=== PATIENT | male | born 1965 | race Caucasian/White ===

== ENCOUNTER 2018-09-27 06:46 | Day surgery (SDC) | payer OTHER ==
[~2018-09-27] VITALS: Ht 180.3 cm; Wt 71.2 kg
[~2018-09-27 06:46] MED LIST: COMBIVENT RESPIM4 GM INH
--- NOTE | 2018-09-27 06:52 | NUR ---
09/27/18 0652 Yin Reed History, Chart, Medications and Allergies reviewed before start of procedure. PATIENT CONFIRMS NPO STATUS AND AGREES WITH SCHEDULED PROCEDURE. O2 VIA N/C INTACT THROUGHOUT SEDATION/PROCEDURE. 3-LEAD EKG REVIEWED WITH PHYSICIAN PRIOR TO START OF PROCEDURE. O2 VIA N/C INTACT THROUGHOUT SEDATION/PROCEDURE. PATIENT DETERMINED TO BE ASA APPROPRIATE FOR PROPOFOL SEDATION PRIOR TO START OF PROCEDURE BY DR. DOOLEY.
--- NOTE | 2018-09-27 07:21 | NUR ---
LUNG SOUNDS CLEAR.
--- NOTE | 2018-09-27 07:21 | NUR ---
PT ADMITTED TO [facility]. AGREES WITH PLANNED PROECDURE. STATES HE TOLERATED BOWEL PREP AND LAST BM CLEAR.
--- NOTE | 2018-09-27 09:02 | NUR ---
Discharge instructions reviewed with patient. Patient verbalizes understanding. Copy given to patient to take home. Patient States Post-Procedure ride home has been arranged. CALLED, RIDE ON WAY IN.
--- NOTE | 2018-09-27 09:26 | NUR ---
Discharged via wheelchair to private car for ride home.
== END 2018-09-27 09:25 | disposition home or self-care (01) ==
LOC: ORSCMMR 06:46 → ORD 08:00 → ORSCMMR 08:00
PROVIDERS: Internal Medicine Gastroenterology
PROC: 0DBM8ZX Excision of Descending Colon, Via Natural or Artificial Opening Endoscopic, Diagnostic (ICD-10-PCS; principal; 2018-09-27 08:00)
PROC: 0DBH8ZX Excision of Cecum, Via Natural or Artificial Opening Endoscopic, Diagnostic (ICD-10-PCS; principal; 2018-09-27 08:00)
DX: Z86.010 Personal history of colon polyps (principal); D12.0 Benign neoplasm of cecum; D12.3 Benign neoplasm of transverse colon; J44.9 Chronic obstructive pulmonary disease, unspecified; F17.210 Nicotine dependence, cigarettes, uncomplicated
CPT/HCPCS: 88305; J2704; J7120

== ENCOUNTER 2022-09-01 06:44 | Day surgery (SDC) | payer OTHER ==
[2022-09-01] VITALS (8 sets, daily range): BP systolic 116–150; BP diastolic 81–97
[~2022-09-01] VITALS: Ht 180.3 cm; Wt 65.9 kg
[~2022-09-01 06:44] MED LIST changes: +ALBU90OI INH; +AMLO5 PO; +ATOR80 PO; +Aspir 8181 MG PO; +BUDESONIDE-FO10.2 G2 INH; +BUPR150T2 PO; +IBUP200 PO; +IBUP600 PO
--- NOTE | 2022-09-01 10:02 | NUR ---
PT BACK TO [facility]ERY VIA BED AFTER PROCEDURE. AWAKE AND ALERT, DENIES ANY PAIN OR DISCOMFORT. VSS, LEFT GROIN SITE WITH TEGADERM CHG IN PLACE, NO BLEEDING OR SWELLING NOTED AT SITE.
--- NOTE | 2022-09-01 11:09 | NUR ---
PT WATCHING TV, DENIES CURRENT PAIN OR DISCOMFORT. LEFT GROIN SITE REMAINS SOFT AND NON-TENDER. NO BLEEDING OR SWELLING NOTED AT SITE. VSS, CALL LIGHT IN REACH.
--- NOTE | 2022-09-01 12:04 | NUR ---
PT SITTING UP IN BED, EATING LUNCH. DENIES CURRENT PAIN OR DISCOMFORT. VSS, CALL LIGHT IN REACH.
--- NOTE | 2022-09-01 12:41 | NUR ---
DISCHARGE PAPERWORK REVIEWED WITH PATIENT. ALL QUESTIONS WERE ANSWERED. PATIENT AMBULATING TO BATHROOM WITHOUT DIFFICULTY. L GROIN SITE C/D/I SOFT/NONTENDER, NO EVIDENCE OF HEMATOMA. VSS ON ROOM AIR.
--- NOTE | 2022-09-01 12:57 | NUR ---
PATIENT DISCHARGED HOME AT THIS TIME. PIV REMOVED WITHOUT DIFFICULTY, CATHETER INTACT. PATIENT BELONGINGS AND PAPERWORK LEFT WITH PATIENT. L GROIN SITE C/D/I SOFT/NONTENDER, NO EVIDENCE OF HEMATOMA PATIENT WHEELED TO PATIENT ENTRANCE BY VOLUNTEER. PATIENTS BROTHER IN LAW ABLE TO TRANSPORT PATIENT HOME.
== END 2022-09-01 13:16 | disposition home or self-care (01) ==
LOC: MHTC 06:44
DX: I70.221 Atherosclerosis of native arteries of extremities with rest pain, right leg (principal); L97.519 Non-pressure chronic ulcer of other part of right foot with unspecified severity; I74.5 Embolism and thrombosis of iliac artery; I74.3 Embolism and thrombosis of arteries of the lower extremities
CPT/HCPCS: 37252; 76937; 85347; 99152; 99153; C1725; C1753; C1760; C1769; C1876; C1887; C1894; C2623; J1644; J2250; J3010; J7030; J7040; J7050; Q9967

== ENCOUNTER 2022-09-14 10:09 | Day surgery (SDC) | payer OTHER ==
[2022-09-14] VITALS (19 sets, daily range): BP systolic 74–117; BP diastolic 41–88
[~2022-09-14] VITALS: Ht 180.3 cm; Wt 74.0 kg
--- NOTE | 2022-09-14 14:30 | NUR ---
ASSUMED CARE OF PATIENT AT THIS TIME. ACCESS SITES C/D/I, SOFT/TENDER, NO EVIDENCE OF HEMATOMA. BP LOW, WILL CONTINUE TO MONITOR
--- NOTE | 2022-09-14 14:45 | NUR ---
GROIN SITES C/D/I SOFT/TENDER, NO EVIDENCE OF HEMATOMA
--- NOTE | 2022-09-14 14:50 | NUR ---
MD NOTIFIED OF LOW BLOOD PRESSURES, MD PRESENT AT BEDSIDE. CT SCAN PERFORMED.
--- NOTE | 2022-09-14 15:57 | NUR ---
CT REPORT REVIEWED WITH . PATIENT OK TO DISCHARGE TODAY. HOB ELEVATED 30 DEGREES, L GROIN SITE C/D/I SOFT/TENDER, NO EVIDENCE OF HEMATOMA. VSS ON ROOM AIR.
--- NOTE | 2022-09-14 16:30 | NUR ---
PATIENT AMBULATNG AND VOIDING TO RESTROOM WITHOUT DIFFICULTY. BILATERAL GROIN SITES C/D/I SOFT/TENDER, NO EVIDENCE OF HEMATOMA. L PT SITE C/D/I SOFT/NONTENDER, NO EVIDNECE OF BLEEDING. VSS ON ROOM AIR.
--- NOTE | 2022-09-14 17:00 | NUR ---
PATIENT DISCHARGED HOME AT THIS TIME. PAPERWORK AND PATIENT BELONGINGS LEFT WITH PATIENT. PIV REMOVED WITHOUT DIFFICULTY, CATHETER INTACT. BILATERAL GROIN SITES C/D/I SOFT/TENDER, NO EVIDENCE OF HEMATOMA. VSS ON ROOM AIR. PATIENT WHEELED TO HOSPITAL ENTRANCE. BROTHER IN LAW ABLE TO PROVIDE TRANSPORTATION HOME.
== END 2022-09-14 17:00 | disposition home or self-care (01) ==
LOC: MHTC 10:09
DX: I70.221 Atherosclerosis of native arteries of extremities with rest pain, right leg (principal); Z87.891 Personal history of nicotine dependence; L97.519 Non-pressure chronic ulcer of other part of right foot with unspecified severity; Z91.048 Other nonmedicinal substance allergy status
CPT/HCPCS: 37221; 74176; 75716; 75774; 76937; 99152; 99153; C1725; C1760; C1769; C1876; C1887; C1894; J1265; J1644; J2250; J2370; J3010; J7030; J7040; J7050; Q9967

== ENCOUNTER 2023-04-28 12:29 | Emergency (ER) | payer OTHER ==
[~2023-04-28] VITALS: Ht 180.3 cm; Wt 63.5 kg
[2023-04-28 12:34] VITALS: BP 135/90
[2023-04-28 13:48] LABS: Albumin, Blood 2.9 g/dL (3.4-5.0); Albumin/Globulin Ratio 0.6 (0.8-1.8); Bilirubin, Total 0.3 mg/dL (0.1-1.0); Bun/Creatinine Ratio 19.1 (12.0-20.0); Calcium, Blood 9.2 mg/dL (8.5-10.1); Creatinine, Blood 0.68 mg/dL (0.60-1.20); Globulin, Blood 4.8 g/dL (2.2-4.0); Potassium, Blood 3.6 mmol/L (3.5-5.5); Total Protein, Blood 7.7 g/dL (6.4-8.2)
[2023-04-28 13:54] LABS: BASOPHILS ABSOLUTE AUTO 0.05 K/mm3 (0.00-0.23); BASOPHILS PERCENT AUTO 1 % (0-2); EOSINOPHILS ABSOLUTE AUTO 0.23 K/mm3 (0.00-0.68); EOSINOPHILS PERCENT AUTO 3 % (0-6); Hematocrit 43.6 % (37.0-53.0); Hemoglobin 14.3 g/dL (13.5-17.5); IMMATURE GRAN ABSOLUTE AUTO 0.09 K/mm3 (0.00-0.10); IMMATURE GRAN PERCENT AUTO 1 % (0-1); LYMPHOCYTES ABSOLUTE AUTO 2.45 K/mm3 (0.84-5.20); LYMPHOCYTES PERCENT AUTO 26 % (21-46); MONOCYTES ABSOLUTE AUTO 0.88 K/mm3 (0.16-1.47); MONOCYTES PERCENT AUTO 10 % (4-13); Mean Corpuscular HGB 28.7 pg (26.0-34.0); Mean Corpuscular HGB Conc 32.8 g/dL (31.5-36.5); Mean Corpuscular Volume 88 fL (80-100); Mean Platelet Volume 10.5 fL (9.1-12.4); NEUTROPHILS ABSOLUTE AUTO 5.58 K/mm3 (1.96-9.15); NEUTROPHILS PERCENT AUTO 60 % (41-73); Platelet Count 430 K/mm3 (150-400); RDW Standard Deviation 45.1 fL (35.1-46.3); Red Blood Cell Count 4.98 M/mm3 (4.30-5.90); White Blood Cell Count 9.28 K/mm3 (4.00-11.30)
[2023-04-28] MEDS ORDERED: CEPH500 PO (15:28)
== END 2023-04-28 15:37 | disposition home or self-care (01) ==
LOC: ER 12:29
PROVIDERS: Physician Assistant
DX: L97.519 Non-pressure chronic ulcer of other part of right foot with unspecified severity (principal); J44.9 Chronic obstructive pulmonary disease, unspecified; F17.200 Nicotine dependence, unspecified, uncomplicated; Z91.030 Bee allergy status
CPT/HCPCS: 73630; 80053; 85025; 99284-25; A9270

== ENCOUNTER 2023-05-12 12:11 | Inpatient (IN) | payer OTHER ==
[2023-05-12] VITALS (21 sets, daily range): BP systolic 112–153; BP diastolic 76–97
[~2023-05-12] VITALS: Ht 180.3 cm; Wt 63.7 kg
[~2023-05-12 12:11] MED LIST changes: +CEPH500 PO
--- NOTE | 2023-05-12 12:20 | NUR ---
PT ARRIVES TO ICU 2 DIRECT ADMIT. PT IS A/O X4 ABLE TO AMBULATE. HAS WALKING BOOT TO R FOOT. DR. LAZARO TO BEDSIDE AND FOOT WAS UNWRAPPED AND ASSESSED. TOP OF R FOOT HAS OPEN WOUND WITH TENDON EXPOSED. WOUND PHOTOS TAKEN. ALSO HAS ABRAISION TO R JANSEN. PT STATES HE HIT IT ON A COFFEE TABLE IN FEBRUARY AND IT HAS NOT HEALED. CAP REFILL GREATER THAN 3 SECONDS, UNABLE TO PALPATE PULSE. 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 HX OF ILIAC STENTS BILAT. R FOOT AND LEG UP TO THE KNEE HAS 2+ EDEMA. DR. WILSON NOTIFIED OF PT'S ARRIVAL.
[2023-05-12] MEDS ORDERED: ALBU90OI INH (12:37)
[2023-05-12] MEDS ORDERED: MUPIROCIN1 G1 TOP (12:38)
[2023-05-12 13:17] LABS: BASOPHILS ABSOLUTE AUTO 0.05 K/mm3 (0.00-0.23); BASOPHILS PERCENT AUTO 1 % (0-2); EOSINOPHILS ABSOLUTE AUTO 0.28 K/mm3 (0.00-0.68); EOSINOPHILS PERCENT AUTO 3 % (0-6); Hematocrit 43.9 % (37.0-53.0); Hemoglobin 14.1 g/dL (13.5-17.5); IMMATURE GRAN ABSOLUTE AUTO 0.04 K/mm3 (0.00-0.10); IMMATURE GRAN PERCENT AUTO 0 % (0-1); LYMPHOCYTES ABSOLUTE AUTO 2.35 K/mm3 (0.84-5.20); LYMPHOCYTES PERCENT AUTO 26 % (21-46); MONOCYTES PERCENT AUTO 10 % (4-13); Mean Corpuscular HGB 28.3 pg (26.0-34.0); Mean Corpuscular HGB Conc 32.1 g/dL (31.5-36.5); Mean Corpuscular Volume 88 fL (80-100); NEUTROPHILS PERCENT AUTO 60 % (41-73); Platelet Count 232 K/mm3 (150-400); RDW Coefficient Variation 14.5 % (11.7-14.2); Red Blood Cell Count 4.99 M/mm3 (4.30-5.90); White Blood Cell Count 8.92 K/mm3 (4.00-11.30)
[2023-05-12 13:24] LABS: International Normalized Ratio 1.01; Prothrombin Time Results 10.6 Sec (9.7-11.5)
[2023-05-12 13:51] LABS: Alanine Aminotransfer (ALT/SGP 15 U/L (12-78); Albumin, Blood 3.1 g/dL (3.4-5.0); Albumin/Globulin Ratio 0.7 (0.8-1.8); Alk Phos 73 U/L (50-136); Anion Gap 2 mmol/L (6-16); Aspartate Aminotrans (AST/SGOT 13 U/L (12-37); Bilirubin, Total 0.3 mg/dL (0.1-1.0); Blood Urea Nitrogen 23 mg/dL (8-24); CO2, Blood 32 mmol/L (21-32); Calcium, Blood 9.4 mg/dL (8.5-10.1); Chloride, Blood 103 mmol/L (98-108); Cholesterol 168 mg/dL (50-200); Creatinine, Blood 0.68 mg/dL (0.60-1.20); Globulin, Blood 4.6 g/dL (2.2-4.0); Glomerular Filtration Rate 106 (60-); Glucose, Blood 102 mg/dL (70-99); HDL Cholesterol 42 mg/dL (>39); LDL/HDL RATIO 2.6; Low Density Lipoprotein Chol 107 mg/dL (0-110); Phosphorus, Blood 3.3 mg/dL (2.5-4.9); Potassium, Blood 3.9 mmol/L (3.5-5.5); Sodium, Blood 137 mmol/L (136-145); Total Protein, Blood 7.7 g/dL (6.4-8.2); Triglycerides 93 mg/dL (30-160); Very Low Density Lipoprot Chol 18 mg/dL (6-32)
--- NOTE | 2023-05-12 14:24 | NUR ---
DR. WILSON AT BEDSIDE. PT TAKEN TO ANGLE ROLL OPERATOR ACCOMPANIED BY ANGLE ROLL OPERATOR STAFF.
--- NOTE | 2023-05-12 18:07 | NUR ---
SUMMARY PT ADMITTED TODAY FOR REVASC OF RLE WITH DR. WILSON. PT IS A/O X4. HAS OPEN WOUND WITH EXPOSED TENDON TO R TOP OF FOOT. AFTER REVASC PROCEDURE WOUND CARE COMPLETE. PUT MUPIROCIN ON WOUND, THEN COVERED WITH OIL EMULSION DRSNG, THEN NON ADHERENT PAD AND SECURED WITH KERLEX. R FOOT IS REGAINING SOME COLOR AFTER PROCEDURE. DORSALIS AND POSTERIOR TIB PEDAL PULSE TO R IS A MONOPHASIC WHOOSH. VERY DIFFICULT TO FIND A CONSISTENT DOPPLER PULSE TO L FOOT. PT WAS HAVING PAIN TO R FOOT, PERCOCET GIVEN WITH GOOD RESULTS. HAS ACCESS SITE TO L FEMORAL WITH ANGIOSEAL CLOSURE AND ACCESS SITE AT R POSTERIOR TIBIAL. BOTH SITES STABLE. LAYING FLAT IN BED, NO SIGN OF DISTRESS, PLEASANT AND COOPERATIVE WITH CARE.
[2023-05-13] VITALS (15 sets, daily range): BP systolic 96–148; BP diastolic 64–107
[2023-05-13 04:39] LABS: BASOPHILS ABSOLUTE AUTO 0.04 K/mm3 (0.00-0.23); BASOPHILS PERCENT AUTO 1 % (0-2); EOSINOPHILS ABSOLUTE AUTO 0.18 K/mm3 (0.00-0.68); EOSINOPHILS PERCENT AUTO 2 % (0-6); Hematocrit 39.4 % (37.0-53.0); IMMATURE GRAN ABSOLUTE AUTO 0.04 K/mm3 (0.00-0.10); IMMATURE GRAN PERCENT AUTO 1 % (0-1); LYMPHOCYTES ABSOLUTE AUTO 1.64 K/mm3 (0.84-5.20); LYMPHOCYTES PERCENT AUTO 20 % (21-46); MONOCYTES ABSOLUTE AUTO 0.93 K/mm3 (0.16-1.47); MONOCYTES PERCENT AUTO 12 % (4-13); Mean Corpuscular Volume 88 fL (80-100); Mean Platelet Volume 11.1 fL (9.1-12.4); NEUTROPHILS ABSOLUTE AUTO 5.29 K/mm3 (1.96-9.15); NEUTROPHILS PERCENT AUTO 65 % (41-73); Platelet Count 186 K/mm3 (150-400); RDW Coefficient Variation 14.4 % (11.7-14.2); Red Blood Cell Count 4.49 M/mm3 (4.30-5.90); White Blood Cell Count 8.12 K/mm3 (4.00-11.30)
[2023-05-13 05:13] LABS: Albumin, Blood 2.6 g/dL (3.4-5.0); Anion Gap 3 mmol/L (6-16); Blood Urea Nitrogen 12 mg/dL (8-24); Bun/Creatinine Ratio 19.2 (12.0-20.0); CO2, Blood 29 mmol/L (21-32); Calcium, Blood 8.5 mg/dL (8.5-10.1); Chloride, Blood 104 mmol/L (98-108); Creatinine, Blood 0.63 mg/dL (0.60-1.20); Glomerular Filtration Rate 109 (60-); Glucose, Blood 96 mg/dL (70-99); Magnesium, Blood 1.8 mg/dL (1.6-2.4); Phosphorus, Blood 3.6 mg/dL (2.5-4.9); Potassium, Blood 3.7 mmol/L (3.5-5.5); Sodium, Blood 136 mmol/L (136-145)
--- NOTE | 2023-05-13 05:37 | NUR ---
PATIENT AOX4. REPORTS RLE PAIN. PULSES PRESENT WITH DOPPLER IN BLE. CAP REFILL LESS THAN 3 SECONDS. SR WITH STABLE BP. ROOM AIR.
--- NOTE | 2023-05-13 07:23 | NUR ---
ASSUMPTION OF CARE: ASSUMED CARE OF PATIENT. PATIENT RESTING IN BED. PATIENT ALERT AND ANSWERING QUESTIONS APPROPRIATELY. VITAL SIGNS STABLE WITH MAPS >65 AND SPO2 >94% ON ROOM AIR. PATIENT IN NO APPARENT DISTRESS. RIGHT FOOT IS BANDAGED AND DRESSING IS C/D/I. THE RIGHT TIBIAL ACCESS POINT IS DRESSED WITH NO OOZING OR HEMATOMA AT THE SITE. HEPARIN GTT 16 UNITS/KG/HR AND NS AT 75 ML/HR INFUSING. PATIENT DENIES NEEDS AT THIS TIME.
--- NOTE | 2023-05-13 19:05 | NUR ---
SHIFT SUMMARY: NEURO: PATIENT ALERT AND ORIENTED X 4. PATIENT REPORTS NUMBNESS/TINGLING IN BLE, THE RIGHT WORSE THAN THE LEFT. PATIENTS RIGHT FOOT PAINFUL (RATED IT AT 6-7/10). PAIN CONTROLLED WITH PRN PERCOCET. RESPIRATORY: PATIENT STABLE ON ROOM AIR. SPO2 >92% ON ROOM AIR. PATIENT HAS A COARSE SOUNDING COUGH. PATIENT IS A CURRENT SMOKER. DENIED NEED FOR THE PATCH OR NICOTINE REPLACEMENT AT THIS TIME. CARDIAC: PATIENT BLOOD PRESSURE AND HR STABLE. MAPS >65. DOPPLER REQUIRED TO FIND BOTH PEDAL PULSES. RIGHT TIBIAL AND LEFT GROIN PUNCTURE SITES REMAINED UNCHANGED DURING THE SHIFT. CHG DRESSINGS REMAINED C/D/I. GI/: PATIENT VOIDING WITHOUT DIFFICULTY. PATIENT DENIES CONSTIPATION OR NAUSEA. PATIENT HAS AN EXCELLENT APPETITE. PSYCHSOCIAL: PATIENT CALM AND COOPERATIVE.
--- NOTE | 2023-05-13 22:21 | NUR ---
ASSUMPTION OF CARE BEDSDIE SHIFT REPORT RECEIVED FROM DAYSHIFT RN. PT SLEEPING BUT AROUSABLE. PT ANSWERS QUESTIONS, FOLLOWS COMMANDS AND IS ABLE TO MAKE HIS NEEDS KNOWN. HR 80'S SINUS, MAP >65. PT ON RA, OXYGEN SATURATION >95%. PT DENIES CP OR SOB. PT HAS DRESSING IN PLACE TO RIGHT FOOT, TOES PINK AND WARM. PUNCTURE SITE TO RIGHT TIBIAL, CHG DRESSING IN PLACE, NO SIGNS OF OOZING OR HEMATOMA. PUNCTURE SITE TO LEFT GROIN, CHG IN PLACE, NO SIGNS OF OOZING OR HEMATOMA NOTED. PIV TO RIGHT FOREARM. PT DENIES PAIN AT TIME OF ASSESSMENT. BED IN LOWEST POSIITON, CALL LIGHT WITHIN REACH. CARE CONTINUES.
[2023-05-14] VITALS (7 sets, daily range): BP systolic 103–139; BP diastolic 73–88
--- NOTE | 2023-05-14 06:13 | NUR ---
SHIFT SUMMARY PT RESTING IN BED, SLEEPING BUT AROUSABLE. PT FOLLOWS COMMANDS, ABLE TO MAKE NEEDS KNOWN. PT USES CALL LIGHT APPROPRIATELY. MOVES EXTREMITIES EQUALLY BILATERALLY. HR 60-70'S SINUS, MAP >65. PT ON RA, OXYGEN SATURATION >90%. PT DENIES CP OR SOB. ABDOMEN SOFT NONTENDER, BOWEL TONES ACTIVE IN ALL 4 QUADRANTS. PT USES URINAL TO VOID. PT HAS BANDAGE IN PLACE TO RIGHT FOOT, TOES PINK AND WARM. PUNCTURE SITE TO LEFT TIBIAL, CHG IN PALCE, NO SIGNS OF OOZING OR HEMATOMA FORMATION NOTED. PUNCTURE SITE TO LEFT GROIN, CHG IN PLACE, NO SIGNS OF OZZING OR HEMATOMA FORMATION NOTED. PIV TO RIGHT FOREARM INFUSING HEPARIN AT 20UNITS/KG/HR, INCREASED FROM 19UNITS/KG/HR PER PHARMACY. PT HAS COMPLAINED OF PAIN IN HIS RIGHT LOWER LEG TWICE THIS SHIFT, MEDICATED PER EMAR. BED IN LOWEST POSITION, CALL LIGHT WITHIN REACH. CARE CONTINUES.
--- NOTE | 2023-05-14 07:00 | NUR ---
ASSUMPTION OF CARE: ASSUMED CARE OF PATIENT. PATIENT RESTING IN BED. DENIES NEEDS AT THIS TIME. PATIENT SPO2 >92% ON ROOM AIR. BLOOD PRESSURE STABLE WITH SBP >100 AND MAPS >65. PATIENT VOIDING WITHOUT DIFFICULTY. RIGHT FOOT REMAINS PINK/RED AND WARM TO THE TOUCH. PATIENT REPORTS IT IS FEELING MORE NUMB THIS AM.
--- NOTE | 2023-05-14 09:02 | NUR ---
Dr. Rudolph rounded on pt. Foot wound evaluated and discussed with pt. Plan for further revascularization procedures with Dr. Reyes prior to attempting any surgical debridement of the wound. Continue wound care per recommendations from wound RN. Foot re-dressed with xeroform, ABD pad and loose kerlex wrap.
--- NOTE | 2023-05-14 17:38 | NUR ---
SHIFT SUMMARY: MEDICAL STATUS PATIENT: PATIENT REPORTED RIGHT FOOT MORE NUMB TODAY. FOOT CONTINUES TO BE PINK/RED, WARM AND TENDERNESS RELATED TO THE WOUND. PATIENT HAS MOBILITY IN THE RIGHT FOOT AND TOES. DR. RODRIGUEZ AT BEDSIDE THIS MORNING TO EVALUATE THE WOUND. DRESSING CHANGED PER ORDERS. PATIENT PAIN CONTROLLED WITH PRN PERCOCET. PATIENT INDEPENDENT WITH REPOSITIONING. PATIENT HAS AN EXCELLENT APPETITE. PATIENT INDEPENDENT WITH BEDBATH TODAY, BUT DOES DECLINE MOST OOB ACTIVITY. PATIENT CALM AND APPRECIATEIVE OF CARE.
--- NOTE | 2023-05-14 22:21 | NUR ---
ASSUMED CARE/TRANSFER TO 301 PT A/O X 4. C/O PAIN IN RIGHT LEG. MEDICATED PER EMAR. VSS. ON RA. LUNGS COARSE/WHEEZY, OCCASIONAL COUGH. HEPARIN GTT INFUSING. SEE FLOWSHEET FOR RATE. DRSG TO RIGHT FOOT C/D/I. DUSKY TOES TO RIGHT. PT ONE ASSIST TO BSC. REPORT GIVEN TO MEDICAL RN. PT SENT TO 301 WITH WOOD DIE MAKER, BELONGINGS/MEDICATIONS, AND HEPARIN GTT. NO DISTRESS NOTED.
[2023-05-15 03:22] VITALS: BP 108/70
--- NOTE | 2023-05-15 04:25 | NUR ---
SHIFT SUMMARY MR SINGH TRANSFERED FROM ICU TO MEDICAL UNIT LAST EVENING. ON TELEMETRY IN SR 70S, NO CALLS FROM HEALTHCARE ECONOMICS CONSULTANT. 2 RN SKIN CHECK DONE WITH RAUL DE LUNA RN. RIGHT FOOT DRESSING C,D,I. TOES RED AND WARM. PAIN WELL CONTROLLED WITH 2 PERCOCET. HEPARIN GTT CONTINUES AT 21U/KG/HR, UNCHANGED RATE SINCE TRANSFER. BED LOW, CALL LIGHT IN REACH.
[2023-05-15 05:17] LABS: Hematocrit 38.9 % (37.0-53.0); Hemoglobin 12.6 g/dL (13.5-17.5); Mean Corpuscular HGB 28.1 pg (26.0-34.0); Mean Corpuscular HGB Conc 32.4 g/dL (31.5-36.5); Mean Corpuscular Volume 87 fL (80-100); Mean Platelet Volume 12.3 fL (9.1-12.4); Platelet Count 197 K/mm3 (150-400); RDW Coefficient Variation 14.4 % (11.7-14.2); RDW Standard Deviation 45.5 fL (35.1-46.3); Red Blood Cell Count 4.48 M/mm3 (4.30-5.90); White Blood Cell Count 7.83 K/mm3 (4.00-11.30)
[2023-05-15 07:40] VITALS: BP 119/81
[2023-05-15 16:38] VITALS: BP 100/71
--- NOTE | 2023-05-15 18:12 | NUR ---
SHIFT SUMMARY: PT A&O X4. PLEASANT AND COOPERATIVE WITH ALL CARE. NO ACUTE CHANGES THIS SHIFT. HEPARIN INCREASED TO 23U/KG/HR TOLERATING WELL. PT C/O PAIN IN R. FOOT ONCE THIS SHIFT. MEDICATED PER EMAR. DR. RODRIGUEZ ARRIVED TO ASSESS PT THIS AM. PLAN FOR PT TO HAVE REVASCULARIZATION TOMORROW FOLLOWED BY POSSIBLE SURGERY. PT AWARE OF PLAN. DRESSING CHANGED ON R. FOOT. PT TOLERATED WELL. DRESSING C/D/I. CALL LIGHT IN REACH. BED IN LOWEST POSITION. WILL REPORT TO ONCOMING RN.
[2023-05-15 19:48] VITALS: BP 103/68
[2023-05-16 01:56] LABS: Hematocrit 39.6 % (37.0-53.0); Hemoglobin 12.8 g/dL (13.5-17.5); Mean Corpuscular HGB Conc 32.3 g/dL (31.5-36.5); Mean Corpuscular Volume 87 fL (80-100); Platelet Count 197 K/mm3 (150-400); RDW Coefficient Variation 14.5 % (11.7-14.2); RDW Standard Deviation 46.1 fL (35.1-46.3); Red Blood Cell Count 4.57 M/mm3 (4.30-5.90); White Blood Cell Count 8.44 K/mm3 (4.00-11.30)
[2023-05-16 04:15] VITALS: BP 119/71
--- NOTE | 2023-05-16 05:06 | NUR ---
PATIENT IS ALERT AND ORIENTED, ON ROOM AIR AND TELE, WITH ONGOING HEPARIN DRIP INFUSING WELL. COMPLAINT OF PAIN, MEDICATED AACCORDING. NPO AMN FOR REVASCULARIZATION TODAY. ABLE TO USE HIS BEDSIDE COMMODE. NEEDS ATTENDED. CALL LIGHT WITHIN PATIENT'S REACH. WILL CONTINUE TO MONITOR.
[2023-05-16 07:28] VITALS: BP 129/89
--- NOTE | 2023-05-16 14:58 | NUR ---
WOUND CARE WOUND VAC THERAPY INITIATED PER DR. RODRIGUEZ. WOUND CLEANSED WITH NS AND GAUZE. SKIN PREP AND TRANSPARENT FILM TO PERIWOUND. ADAPTIC GAUZE OVER EXPOSED TENDON THEN ONE PIECE BLACK FOAM APPLIED. VAC SET TO CONTINUOUS 120MMHG. PT TOLERATED WELL. NEW PHOTO AND ASSESSMENT IN HARD CHART
[2023-05-16 17:12] VITALS: BP 119/70
--- NOTE | 2023-05-16 19:05 | NUR ---
SHIFT SUMMARY: PT A&O X4. PLEASANT AND COOPERTATIVE WITH CARE. PT C/O PAIN TWICE TODAY IN R. FOOT. MEDICATED PER EMAR. DR. REYNA ARRIVED THIS AM TO ASSESS PT. PLAN FOR PT TO RECEIVE ATTEMPTED INTERVENTION OF R. COMMON/EXTERNAL ILIAC ARTERY TOMORROW. NPO AFTER MIDNIGHT. WOUND VAC APPLIED TO R. FOOT BY WOUND CARE. HEPARIN CONTINUES TO INFUSE. RATE UNCHANGED. CALL LIGHT IN REACH. BED IN LOWEST POSITION.
[2023-05-16 21:28] VITALS: BP 111/66
[2023-05-17] VITALS (13 sets, daily range): BP systolic 92–141; BP diastolic 62–95
[2023-05-17 03:20] LABS: Hematocrit 40.1 % (37.0-53.0); Mean Corpuscular HGB 28.1 pg (26.0-34.0); Mean Corpuscular HGB Conc 32.4 g/dL (31.5-36.5); Mean Corpuscular Volume 87 fL (80-100); Mean Platelet Volume 10.7 fL (9.1-12.4); Platelet Count 214 K/mm3 (150-400); RDW Coefficient Variation 14.6 % (11.7-14.2); RDW Standard Deviation 46.7 fL (35.1-46.3); Red Blood Cell Count 4.63 M/mm3 (4.30-5.90); White Blood Cell Count 7.85 K/mm3 (4.00-11.30)
--- NOTE | 2023-05-17 04:43 | NUR ---
PATIENT IS ALERT AN DORIENTED, ON ROOM AIR. WITH PIV LINE ON RIGHT FA WITH HEPARIN DRIP ONGOING INFUSING WELL. ON TELE. WITH WOUND VAC PLACED. COMPLAINT OF PAIN, MEDICATED ACCORDINGLY. PLACED ON NPO AMN FOR REPEAT ANGIOGRAM AND REVASCULARIZATION. NEEDS ATTENDED. CALL LIGHT WITHIN PATIENT'S REACH. WILL CONTINUE TO MONITOR.
--- NOTE | 2023-05-17 14:46 | NUR ---
TRANSFER TO [facility] FOR [facility]ASC REPORT GIVEN TO SISI EWING RN. DENIES FURTHER NEEDS FOR INSTRUCTION AT THIS TIME.
--- NOTE | 2023-05-17 17:34 | NUR ---
PT ARRIVED FROM [facility] POST ATTEMPTED REVASCULARIZATION OF THE RT LEG. THERE IS A GROIN SITE THAT WAS ATTEMPTED, WHICH IS CLEAN AND DRY, CHG IN PLACE, NO ACTIVE BLEEDING, NO SWELLING NO BRUISING, NO PAIN. HOB AT 20 DEGRESS, PT EDUCATED TO KEEP KNEE LESS THAN 45 DEGRESS OR CLOSE TO STRAIGHT POSSIBLE, IS AWARE THAT HE IS ON BEDREST FOR ANOTHER 90 MINUTES. HE REPORTS THAT HE HAS TINGLING TO THE RIGHT LEG WHICH IS NO DIFFERENT THAT HIS TYPICAL PAIN, HE WAS TREATED WITH GABAPENTIN UPON ARRIVAL. HEPARIN IS OFF. WOUND VAC IS ON AND ENGAGED TO RIGHT FOOT. UNABLE TO LOCATE POPLITEAL, TIBIAL OR PEDAL PULSE ON RIGHT LEG TO PALPATION OR DOPPLER. RT FOOT WITH REDNESS. LT PEDAL PULSE IS NON-PALPABLE, AND IS VERY FAINT TO DOPPLER. HE IS ALERT AND ORIENTED X4. DENIES ANY CP OR SOB. THERE IS A TR BAND TO THE RT WRIST THAT HAS 11ML OF AIR IN IT, THERE IS NO SWELLING, NO BLEEDING, NO BRUISING OR DRAINAGE FROM THIS RADIAL SITE. PULSE IS STRONG, FULL ROM OF RT HAND, SPO2 93% ON RT HAND, DENIES NUMBNESS OR TINGLING TO THE SITE. CALL LIGHT WITHIN REACH
--- NOTE | 2023-05-17 18:25 | NUR ---
ATTEMPTED TR BAND DEFLATION, AFTER REMOVAL OF A LITTLE OVER 1ML OF AIR THE SITE BEGAN TO BLEED, 3ML OF AIR WAS RETURNED TO THE TR BAND WITH GOOD CONTROL OF BLEEDING. THERE IS NO ACTIVE BLEEDING OR OOZING FROM THE SITE AT THIS TIME, NO BRUISING OR SWELLING NOTED. PULSES REMAIN STRONG TO THE RT RADIAL. WILL WAIT ONE HOUR FOR NEXT ATTEMPT, THIS REATTEMPT WILL BE ON NOC SHIFT, WILL PASS ALONG IN REPORT ABOUT BLEEDING WITH FIRST ATTEMPT
--- NOTE | 2023-05-17 21:42 | NUR ---
PT IS ALERT AND ORIENTED X 4, COOPERATIVE WITH CARE AND ABLE TO MAKE NEEDS KNOWN. PT HAS HX OF COPD, MAINTAINING 02 SATURATION HIGH 80'S-LOW/MID 90'S AND DENIES SOB. HIS HR IS SR 80'S, HE DENIES CHEST PAIN/PRESSURE. PT HAS L GROIN SITE FROM 18 AND IT HAS 0 SWELLING/REDNESS/PAIN/ AND 0 HEMATOMA. R GROIN SITE HAS CHG DRESSING AND IS C/D/I, SITE HAS 0 SWELLING/REDNESS/PAIN/ AND NO HEMATOMA. R RADIAL SITE HAS TR AND ARM BOARD IN PLACE. 2CC'S OF AIR REMOVED AT 1943 & 2008. 4 CC'S OF AIR REMOVED AT 2038, 3CC'S AIR REMOVED AT 2054, AND 4 REMOVED AT 2099, NO BLEEDING W/REMOVAL OF AIR. TR AND ARM BOARD STILL IN PLACE. WOUND VA TO PT'S R UPPER FOOT. SCAB/ABRASION TO R JANSEN AND OPEN TO AIR. PT'S R FOOT IS RED/PINK IN COLOR WITH DIMINISHED CAP REFILL. UNABPE TO DOPPLER PULSES TO R FOOT. PT SAID HX OF NUMBNESS/PAIN/TINGLING TO R FOOT. PT WAS MEDICATED PER EMAR. PT AT 90% OF HIS DINNER AND HAS A GOOD APPETITIE AND IS TOLERATING WELL. PT CURRENTLY RESTING IN BED WITH CALL LIGHT WITHIN REACH.
[2023-05-18] VITALS (8 sets, daily range): BP systolic 94–119; BP diastolic 59–87
--- NOTE | 2023-05-18 02:38 | NUR ---
TR BAND REMOVED AT APPROXIMATELY 2200. AFTER ROUGHLY AN HR A SMALL AMOUNT OF BLOOD WAS NOTED COMING FROM R RADIAL SITE, FIRM PRESSURE APPLIED FOR 10 MINUTES. AFTER APPLYING PRESSURE SMALL AMOUNT OF BLOOD STILL COMING FROM SITE, HEMOSTASIS PAD APPLIED WITH TEGADERM PLACED ON TOP OF IT. NO BLOOD SEEPING THROUGH HEMOSTASIS PAD AT THIS TIME. NO SWELLING/REDNESS/HEMATOMA NOTED TO SITE. PT DENIES PAIN TO R RADIAL SITE. L GROIN SITE HAS NO REDNESS/SWELLING/PAIN/AND 0 HEMATOMA. NO CHANGED TO BLE, SEE PREVIOUS NOTE.
--- NOTE | 2023-05-18 05:31 | NUR ---
SHIFT SUMMARY NO ACUTE CHANGES, SEE PREVIOUS NOTES. HEMOSTASIS PAD STILL PLACED ON R RADIAL SITE AND NO BLOOD SEEPING THROUGH, C/D/I. NO PAIN/SWELLING/REDNESS TO L RADIAL SITE, 0 HEMATOMA. L GROIN SITE DRESSING C/D/I, NO REDNESS/SWELLING/PAIN AND 0 HEMATOMA. PT RESTING IN BED, CALL LIGHT WITHIN REACH.
--- NOTE | 2023-05-18 10:44 | NUR ---
AM NOTE: PATIENT ALERT AND ORIENTED X4. 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 NUMBNESS/TINGLING TO BLE. UP WITH SBA. RIGHT FOOT WOUND VAC IN PLACE AT 120MMHG. PLAN FOR HOME WOUND VAC TODAY. TELE SHOWING SINUS RHYTHM WITH HR 80'S. SBP 100-110'S. DENIES CHEST PAIN/PRESSURE/PALPITATIONS. NO EDEMA NOTED. PPP. IV SALINE LOCKED. BILATERAL GROIN SITES WNL, NO SIGNS OF BLEEDING. RIGHT RADIAL SITE WNL WITH DRESSING THAT IS C/D/I AND ARM BOARD IN PLACE. PATIENT EDUCATED ON POST SITE CARE AND PRECAUTIONS. ON ROOM AIR, LUNGS SOUNDING CLEAR. EVEN AND UNLABORED RESPIRATIONS. DENIES SOB/COUGH. BOWEL TONES PRESENT. EATING AND VOIDING WNL. DENIES ABDOMINAL PAIN/NAUSEA. PLAN FOR POSSIBLE DC TODAY WITH FOLLOW UP [facility], HOME WOUND VAC AND OUTPATIENT WOUND CARE. CALL LIGHT IN REACH. DENIES NEEDS AT THIS TIME.
--- NOTE | 2023-05-18 12:45 | NUR ---
HOME WOUND VAC BROUGHT IN. ENGLISH COMPOSITION TEACHER IN ROOM AT THIS TIME.
[2023-05-18 13:42] LABS: GBM, IGG MULTIPLEX BEAD ASSAY 0 AU/mL (0-19)
[2023-05-18] MEDS ORDERED: Acetaminophen325 M1 PO (14:16)
[2023-05-18] MEDS ORDERED: FOLI1 PO (14:17)
[2023-05-18] MEDS ORDERED: JUVEN PACKET1 EAC3 PO (14:17)
[2023-05-18] MEDS ORDERED: ATOR10 PO (14:17)
[2023-05-18] MEDS ORDERED: GABA100 PO (14:17)
[2023-05-18] MEDS ORDERED: ELIQUIS5 M2 PO (14:17)
[2023-05-18] MEDS ORDERED: NICODERM CQ1 EAC3 TOP (14:18)
[2023-05-18] MEDS ORDERED: B-1100 M1 PO (14:18)
[2023-05-18] MEDS ORDERED: MUPIROCIN1 G1 TOP (14:18)
--- NOTE | 2023-05-18 15:32 | NUR ---
DISCHARGE: NO ACUTE CHANGES. HOME WOUND VAC IN PLACE AND PATIENT EDUCATED ON HOME WOUND VAC AND HOME HEALTH MANAGEMENT. THIS RN REVIEWED DISCHARGE INSTRUCTIONS WHICH INCLUDED FOLLOW UP APPOINTMENTS WITH DR. RODRIGUEZ, DR. WILSON AND DR. CLAYTON WELL NEW MEDICATIONS, RADIAL AND FEMORAL PRECAUTIONS, SIGNS AND SYMPTOMS OF WHEN TO RETURN AND HOME HEALTH PLAN. PATIENT ABLE TO TEACH DISCHARGE INSTRUCTIONS BACK TO THIS RN. IV REMOVED WNL. PATIENT MEDICATIONS FAXED TO [facility] SENT WITH PATIENT FOR PERCOCET. PATIENT LEFT UNIT VIA WHEELCHAIR WITH ALL PERSONAL BELONGINGS AND HOME WOUND VAC SUPPLIES.
== END 2023-05-18 15:24 | disposition home health service (06) | DRG 253 ==
LOC: ICUE 12:11 → PCU 12:53 → MEDS 12:53 → ICUE 12:54 → MEDS 05-14 21:44 → PCU 05-17 15:21
PROVIDERS: Internal Medicine; ADMIT Family Medicine
PROC: 047K3Z1 Dilation of Right Femoral Artery using Drug-Coated Balloon, Percutaneous Approach (ICD-10-PCS; principal; 2023-05-12)
PROC: 047M3Z1 Dilation of Right Popliteal Artery using Drug-Coated Balloon, Percutaneous Approach (ICD-10-PCS; 2023-05-12)
PROC: B410ZZZ Fluoroscopy of Abdominal Aorta (ICD-10-PCS; 2023-05-12)
PROC: B41FZZZ Fluoroscopy of Right Lower Extremity Arteries (ICD-10-PCS; 2023-05-12)
DX: I70.235 Atherosclerosis of native arteries of right leg with ulceration of other part of foot (principal); I74.5 Embolism and thrombosis of iliac artery; L97.516 Non-pressure chronic ulcer of other part of right foot with bone involvement without evidence of necrosis; G62.9 Polyneuropathy, unspecified; F10.20 Alcohol dependence, uncomplicated; J44.9 Chronic obstructive pulmonary disease, unspecified; I10 Essential (primary) hypertension; F17.210 Nicotine dependence, cigarettes, uncomplicated; Z95.820 Peripheral vascular angioplasty status with implants and grafts
CPT/HCPCS: 36415; 76937; 80053; 80061; 80069; 82607; 82746; 83516; 83735; 84100; 84443; 85025; 85027; 85347; 85520; 85610; 93971; 94640; 94664; 94760; 94762; 99152; 99153; A9270; C1725; C1760; C1769; C1887; C1894; C2623; J1644; J2250; J3010; J7030; J7050; Q9967

== ENCOUNTER 2023-05-27 09:32 | Emergency (ER) | payer OTHER ==
[~2023-05-27] VITALS: Ht 180.3 cm; Wt 63.5 kg
[~2023-05-27 09:32] MED LIST changes: +ATOR10 PO; +Acetaminophen325 M1 PO; +B-1100 M1 PO; +ELIQUIS5 M2 PO; +FOLI1 PO; +GABA100 PO; +JUVEN PACKET1 EAC3 PO; +MUPIROCIN1 G1 TOP; +NICODERM CQ1 EAC3 TOP
[2023-05-27 10:22] LABS: BASOPHILS ABSOLUTE AUTO 0.02 K/mm3 (0.00-0.23); BASOPHILS PERCENT AUTO 0 % (0-2); EOSINOPHILS ABSOLUTE AUTO 0.07 K/mm3 (0.00-0.68); EOSINOPHILS PERCENT AUTO 1 % (0-6); Hematocrit 40.5 % (37.0-53.0); Hemoglobin 13.4 g/dL (13.5-17.5); IMMATURE GRAN ABSOLUTE AUTO 0.07 K/mm3 (0.00-0.10); IMMATURE GRAN PERCENT AUTO 1 % (0-1); LYMPHOCYTES ABSOLUTE AUTO 1.72 K/mm3 (0.84-5.20); LYMPHOCYTES PERCENT AUTO 15 % (21-46); MONOCYTES ABSOLUTE AUTO 1.27 K/mm3 (0.16-1.47); MONOCYTES PERCENT AUTO 11 % (4-13); Mean Corpuscular HGB 28.3 pg (26.0-34.0); Mean Corpuscular HGB Conc 33.1 g/dL (31.5-36.5); Mean Corpuscular Volume 85 fL (80-100); Mean Platelet Volume 9.4 fL (9.1-12.4); NEUTROPHILS ABSOLUTE AUTO 8.12 K/mm3 (1.96-9.15); NEUTROPHILS PERCENT AUTO 72 % (41-73); Platelet Count 402 K/mm3 (150-400); RDW Coefficient Variation 14.7 % (11.7-14.2); RDW Standard Deviation 46.3 fL (35.1-46.3); Red Blood Cell Count 4.74 M/mm3 (4.30-5.90); White Blood Cell Count 11.27 K/mm3 (4.00-11.30)
[2023-05-27 10:41] LABS: Bun/Creatinine Ratio 20.8 (12.0-20.0); Calcium, Blood 9.6 mg/dL (8.5-10.1); Creatinine, Blood 0.58 mg/dL (0.60-1.20)
[2023-05-27] MEDS ORDERED: HYDROcodone 10-APAP 325 TAB PO ONE (13:55)
[2023-05-27 14:02] VITALS: BP 127/86
== END 2023-05-27 16:06 | disposition short-term general hospital (02) ==
LOC: ER 09:32
PROVIDERS: Emergency Medicine
DX: I73.9 Peripheral vascular disease, unspecified (principal); E11.621 Type 2 diabetes mellitus with foot ulcer; F17.210 Nicotine dependence, cigarettes, uncomplicated; L97.519 Non-pressure chronic ulcer of other part of right foot with unspecified severity; J44.9 Chronic obstructive pulmonary disease, unspecified; Z79.899 Other long term (current) drug therapy; Z91.030 Bee allergy status; F17.200 Nicotine dependence, unspecified, uncomplicated
CPT/HCPCS: 80048; 85025; 99285; A9270